=== PATIENT | male | born 1970 | race Caucasian/White ===

== ENCOUNTER 2022-08-04 03:41 | Emergency (ER) | payer MEDICAID ==
[~2022-08-04] VITALS: Ht 182.9 cm; Wt 86.2 kg
[~2022-08-04 03:41] MED LIST: HYDR1TAB93 PO; IBUP800T54 PO
[2022-08-04 03:48] VITALS: BP 133/70
--- NOTE | 2022-08-04 05:16 | NUR ---
ultrasound at bedside
[2022-08-04] MEDS ORDERED: SULF1TAB48 PO (06:13)
== END 2022-08-04 06:32 | disposition home or self-care (01) ==
LOC: ER 03:45
DX: R22.42 Localized swelling, mass and lump, left lower limb (principal); Z60.2 Problems related to living alone; Z79.899 Other long term (current) drug therapy
CPT/HCPCS: 76882